=== PATIENT | male | born 1960 | race Caucasian/White ===

== ENCOUNTER 2020-02-10 04:28 | Inpatient (IN) | payer OTHER ==
[~2020-02-10] VITALS: Ht 182.9 cm; Wt 173.3 kg
[2020-02-10 04:41] VITALS: Ht 182.9 cm; Wt 173.3 kg
[2020-02-10 11:03] LABS: CALCIUM 9.3 mg/dL (8.5-10.1); CARBON DIOXIDE 21.5 mmol/L (21-32); CREATININE SERUM 1.8 mg/dL (0.7-1.3); POTASSIUM SERUM 3.6 mmol/L (3.5-5.1)
[2020-02-10 11:05] LABS: BASOPHIL % 0.4 % (0.2-1.5); PLATELET COUNT 227 x10^3mcL (152-348); RED CELL DISTRIBUTION WIDTH 14.4 % (12.1-16.2)
[2020-02-10 11:08] LABS: FREE T4 0.96 ng/dL (0.76-1.46); FREE THYROXINE INDEX 2.6 ug/dL (1.4-4.5); T4(THYROXINE) 7.1 ug/dL (4.7-13.3)
[2020-02-10 11:13] LABS: BILIRUBIN TOTAL 0.46 mg/dL (0.20-1.00); C REACTIVE PROTEIN 5.3 mg/dL (<=0.9); CK-MB 0.5 ng/mL (0-3.6)
[2020-02-10 11:21] LABS: T3 TOTAL 0.98 ng/mL
[2020-02-10] MEDS ORDERED: ZESTRIL10 MG PO (14:31)
[2020-02-10] MEDS ORDERED: HUMALOG100 U/ML SC (14:31)
[2020-02-10 15:10] LABS: ERYTHROCYTE SED RATE 49 mm/hr (0-20)
[2020-02-10 16:32] LABS: HDL CHOLESTEROL 38 mg/dL (40-60); MAGNESIUM 2.1 mg/dL (1.8-2.4)
[2020-02-10 16:34] LABS: AMYLASE 594 U/L (25-115)
[2020-02-10 16:35] LABS: CHOLESTEROL 242 mg/dL (<200); CHOLESTEROL/HDL RATIO 6.4; TRIGLYCERIDES 413 mg/dL (<150)
[2020-02-10 21:09] LABS: LIPASE 17316 IU/L (73-393)
[2020-02-11] VITALS (7 sets, daily range): BP systolic 112–138; BP diastolic 52–64
[2020-02-11 06:25] LABS: BASOPHIL % 0.3 % (0.2-1.5); PLATELET COUNT 213 x10^3mcL (152-348)
[2020-02-11 06:44] LABS: microscopic required? NO
[2020-02-11 06:53] LABS: CARBON DIOXIDE 22.7 mmol/L (21-32); CREATININE SERUM 1.9 mg/dL (0.7-1.3); MAGNESIUM 2.1 mg/dL (1.8-2.4); PHOSPHOROUS 2.9 mg/dL (2.5-4.9); POTASSIUM SERUM 4.3 mmol/L (3.5-5.1)
[2020-02-11 07:09] LABS: RED CELL DISTRIBUTION WIDTH 14.7 % (12.1-16.2)
[2020-02-11 08:13] LABS: AMPHETAMINE QUAL UR NONE DETECTED (See below)
[2020-02-11 08:52] LABS: UA SPECIFIC GRAVITY 1.015 (1.005-1.035); urine erythrocyte NEGATIVE (NEGATIVE)
[2020-02-12 06:49] VITALS: BP 124/65
[2020-02-12 07:32] LABS: BASOPHIL % 0.4 % (0.2-1.5); PLATELET COUNT 230 x10^3mcL (152-348)
[2020-02-12 07:48] VITALS: BP 127/65
[2020-02-12 08:19] LABS: RED CELL DISTRIBUTION WIDTH 14.6 % (12.1-16.2)
[2020-02-12 08:22] LABS: CALCIUM 8.6 mg/dL (8.5-10.1); CARBON DIOXIDE 20.8 mmol/L (21-32); CREATININE SERUM 2.1 mg/dL (0.7-1.3); MAGNESIUM 2.1 mg/dL (1.8-2.4); POTASSIUM SERUM 4.1 mmol/L (3.5-5.1)
[2020-02-12 12:06] VITALS: BP 117/57
[2020-02-12 16:05] VITALS: BP 122/64
[2020-02-12 21:26] VITALS: BP 123/55
[2020-02-13 06:05] VITALS: BP 114/53
[2020-02-13 07:22] LABS: PLATELET COUNT 210 x10^3mcL (152-348); RED CELL DISTRIBUTION WIDTH 14.3 % (12.1-16.2)
[2020-02-13 07:59] LABS: CALCIUM 8.5 mg/dL (8.5-10.1); CARBON DIOXIDE 22.6 mmol/L (21-32); CREATININE SERUM 2.1 mg/dL (0.7-1.3); MAGNESIUM 2.2 mg/dL (1.8-2.4); PHOSPHOROUS 3.1 mg/dL (2.5-4.9); POTASSIUM SERUM 3.7 mmol/L (3.5-5.1)
[2020-02-13 09:45] VITALS: BP 127/59
[2020-02-13] MEDS ORDERED: LEVAQUIN500 M1 PO (11:54)
[2020-02-13] MEDS ORDERED: LEV250 PO (11:57)
== END 2020-02-13 15:10 | disposition home health service (06) | DRG 720 ==
LOC: ED 04:28 → MU 14:09 → DU 14:09
PROVIDERS: Specialist; ADMIT Family Medicine; ATTEND Family Medicine
PROC: 0D9P3ZX Drainage of Rectum, Percutaneous Approach, Diagnostic (ICD-10-PCS; principal; 2020-02-10)
DX: A41.9 Sepsis, unspecified organism (principal); N17.0 Acute kidney failure with tubular necrosis; E11.65 Type 2 diabetes mellitus with hyperglycemia; K61.1 Rectal abscess; Z20.828 Contact with and (suspected) exposure to other viral communicable diseases; Z88.6 Allergy status to analgesic agent; Z88.8 Allergy status to other drugs, medicaments and biological substances; Z90.5 Acquired absence of kidney; Z79.4 Long term (current) use of insulin; Z90.49 Acquired absence of other specified parts of digestive tract; E87.1 Hypo-osmolality and hyponatremia; K86.3 Pseudocyst of pancreas
CPT/HCPCS: 36600; 82962; 83880; 84439; G0378; J1170; J1644; J1815; J2001; J2543; J3490; J7030; Q9967